=== PATIENT | female | born 1945 | race Hispanic/Latino ===

== ENCOUNTER 2019-06-28 13:56 | Emergency (ER) | payer MEDICARE ==
[~2019-06-28] VITALS: Ht 162.6 cm; Wt 91.6 kg
--- OUTSIDE RECORDS SUMMARY | 2019-06-28 13:58 | XMS REPORT | Clinical Summary ---
Author Author [facility] Address Unknown Phone Unavailable Care Team Providers Care Transportation Maintenance Operator Name Role Phone Andrea Ortiz MD PCP Allergies Not on File Medications Not on file Active Problems Not on file Encounters Care Team Description Date Type Specialty Andrea Ortiz MD Screening breast examination (Primary Dx) 03/05/2019 Transcribe Access Orders after 06/27/2018 Social History Date Tobacco Use Types Packs/Day Years Used Never Assessed Sex Assigned at Date Recorded Not on file Industry Job Start Date Occupation Not on file Not on file Not on file Travel End Travel History Travel Start No recent travel history available. Last Filed Vital Signs Not on file Plan of Treatment Health Maintenance Due Date Last Done Comments COLONOSCOPY SCREENING 01/21/1996 SHINGLES VACCINES (#1) 01/21/1996 65+ PNEUMOCOCCAL VACCINE 2011 (1 of 2 - PCV13) INFLUENZA VACCINE 05/22/2019 BREAST CANCER SCREENING 03/07/2021 03/07/2019 Procedures Comments Procedure Name Priority Date/Time Associated Diagnosis MAMMO BREAST SCREEN Routine 03/07/2019 Screening breast TOMOSYNTHESIS BILATERAL 12:00 PM CDT examination after 06/27/2018 Results * Mammo Breast Screen Tomosynthesis Bilateral (03/07/2019 12:00 PM CDT) Specimen Narrative Performed At PROCEDURE: MAMMO BREAST SCREEN TOMOSYNTHESIS BILATERAL [facility] Computer aided detection was utilized for the interpretation of the digital bilateral screening mammography with tomosynthesis. COMPARISON: There is no prior studies available for comparison DENSITY: The breast parenchyma is heterogeneously dense, decreasing the sensitivity of the study. There is a benign postbiopsy clip in the left breast and benign scattered masses and calcifications. There is no evidence of suspicious irregular masses, grouped calcifications or areas of architectural distortion. IMPRESSION:No mammographic evidence of malignancy. RECOMMENDATION: Comparison with physical exam and annual screening mammography. BI-RADS 2: Benign. This facility is accredited by the [employer] for Mammography. A negative x-ray report should not delay biopsy if a dominant or clinically suspicious mass is present.Not all cancers are identified by x-ray. [id number] Performing Organization Address City/State/Zipcode Phone Number [facility] [address] [place] [address] after 06/27/2018 Insurance Type Payer Benefit Subscriber ID Effective Phone Address Plan / Dates Group Medicare MEDICARE MEDICARE xxxxxxxxxxx 2005-P [place], PART A AND resent [place] B Medicaid MEDICAID MEDICAID xxxxxxxxx 2019-P resent Advance Directives For more information, please contact: [phone] Patient Rn Navigator Explanation Type Date Recorded Advance Directives, Living Will and Medical Power of Booster Plant Operator
--- OUTSIDE RECORDS SUMMARY | 2019-06-28 13:58 | XMS REPORT ---
Author Author [facility] Address Unknown Phone Unavailable Care Team Providers Care Visual Presentation Manager Name Role Phone Unavailable Unavailable Payers Payer Name Policy Type Policy Number Effective Date Expiration Date Problems This patient has no known problems. Allergies, Adverse Reactions, Alerts Allergy Name Allergy Type Status Severity Reaction(s) Onset Date Inactive Date Treating Clinician Comments No Known Allergies DA Active U 2015-10-05 00:00:00 Medications This patient has no known medications.
[2019-06-28] MEDS ORDERED: ONDANSETRON HCL INJ 2MG/ML 2ML 2 MG/ML VIAL ONE (14:24)
[2019-06-28] MEDS ORDERED: ONDANSETRON HCL INJ 2MG/ML 2ML 2 MG/ML VIAL IV STA (14:24)
[2019-06-28] MEDS ORDERED: SODIUM CHLORIDE 0.9% 500ML 500 ML ONE (15:45)
[2019-06-28] MEDS ORDERED: SODIUM CHLORIDE 0.9% 500ML 500 ML IV ONE (15:45)
== END 2019-06-28 16:05 | disposition home or self-care (01) ==
LOC: FSED 13:56
DX: R11.2 Nausea with vomiting, unspecified (principal); R19.7 Diarrhea, unspecified; A08.4 Viral intestinal infection, unspecified; K52.9 Noninfective gastroenteritis and colitis, unspecified; E86.9 Volume depletion, unspecified; I10 Essential (primary) hypertension; K21.9 Gastro-esophageal reflux disease without esophagitis; E03.9 Hypothyroidism, unspecified
CPT/HCPCS: 99283; J2405; J7040